=== PATIENT | male | born 1955 | race Caucasian/White ===

== ENCOUNTER → 2019-09-16 | Outpatient (CLI) | payer OTHER ==
[~2019-09-16] MED LIST: ALLO300T PO; ATEN25TA PO; ATEN50TA41 PO; LOSA50TA14 PO
== END | disposition home or self-care (01) ==
LOC: CVU 07:25
PROVIDERS: ATTEND Internal Medicine Cardiovascular Disease
DX: I08.8 Other rheumatic multiple valve diseases (principal); I11.9 Hypertensive heart disease without heart failure
CPT/HCPCS: 93306

== ENCOUNTER 2021-03-05 09:23 | Emergency (ER) | payer OTHER ==
[~2021-03-05] VITALS: Ht 182.9 cm; Wt 97.2 kg
--- NOTE | 2021-03-05 09:41 | NUR ---
pt ambulated to room from triage. pt placed on nibp and o2 monitoring. pt in gown and tech at bedside to establish iv access. call light in reach with education on use.
[2021-03-05] MEDS ORDERED: MORPHINE SULFATE 4 MG/ML, 1ML ONE ×2 (09:49→10:24)
[2021-03-05] MEDS ORDERED: ONDANSETRON 2MG/ML, 2ML ONE (09:49)
[2021-03-05] MEDS: MORPHINE SULFATE 4 MG/ML, 1ML IVPush PRN ×2 (09:55→10:29)
[2021-03-05] MEDS ORDERED: SODIUM CHLORIDE FLUSH 10ML SYR IVF ONE (10:00)
[2021-03-05] MEDS ORDERED: ONDANSETRON 2MG/ML, 2ML IVPush ONE (10:00)
[2021-03-05 10:04] LABS: BASOPHILS % (AUTO) 1 % (0-1); EOSINOPHILS % (AUTO) 2 % (1-7); LYMPHOCYTES % (AUTO) 20 % (22-44); MEAN CORPUSCULAR HEMOGLOBIN 30.7 pg (27.5-34.5); MEAN CORPUSCULAR HGB CONC 34.3 g/dL (33.2-36.2); MEAN PLATELET VOLUME 8.5 fL (7.4-10.4); MONOCYTES % (AUTO) 6 % (2-9); NEUTROPHILS % (AUTO) 71 % (42-75); PLATELET COUNT 178 x10^3/uL (130-400); RED BLOOD COUNT 4.99 x10^6/uL (4.38-5.82)
--- NOTE | 2021-03-05 10:13 | NUR ---
pt appears more comfortable at this time. pt advised one more dose of pain meds ordered and to advise this rn when needed. pt to ct now
[2021-03-05 10:14] LABS: ALANINE AMINOTRANSFERASE 49 U/L (12-78); ALBUMIN 4.1 g/dL (3.4-5.0); ANION GAP 10 mmol/L (5-15); CALCIUM 9.4 mg/dL (8.5-10.1); CHLORIDE 106 mmol/L (98-107); CREATININE 1.27 mg/dL (0.7-1.3)
[2021-03-05 10:16] LABS: ALKALINE PHOSPHATASE 100 U/L (45-117); BILIRUBIN,TOTAL 0.6 mg/dL (0.2-1.0); TOTAL PROTEIN 7.5 g/dL (6.4-8.2)
--- NOTE | 2021-03-05 10:38 | NUR ---
pt educated on need for ua. pt at this time unable to urinate.
--- NOTE | 2021-03-05 11:19 | NUR ---
patient moved to room 10 and report from Justina Orta. patient in bed rails up, still can not urinate. getting fluids
[2021-03-05 12:12] LABS: MICROSCOPIC AUTO
[2021-03-05 12:50] VITALS: BP 155/78
--- NOTE | 2021-03-05 12:51 | NUR ---
PATIENT AND SISTER IN A HUGE HURRY TO LEAVE. AWAITING DISCHARGE PAPERWORK AND DISCHARGED PATIENT SOON POSSIBLE. SISTER ASKING FOR FOOD, WATER, PAIN MEDS AND GETTING ANGRY NOT DELIVERED IMMIEDIATELY. DIRECTED HER TO [employer] FOR FOOD AND INSTRUCTED HER AFTER I REMOVE IV I WILL GET WATER. DISCHARGE REVIEWED, AND THEN PATIENT DECLINED WATER.
== END 2021-03-05 12:53 | disposition home or self-care (01) ==
LOC: ED 10:10
DX: N13.2 Hydronephrosis with renal and ureteral calculous obstruction (principal); I10 Essential (primary) hypertension
CPT/HCPCS: 36415; 74176; 80053; 81001; 83690; 85025; 96374; 96375; 96376; 99284; J2270; J2405